=== PATIENT | female | born 1975 ===

== ENCOUNTER 2024-08-23 08:07 | Day surgery (SDC) | payer OTHER ==
[2024-08-11 12:10] VITALS: BP 121/75
[~2024-08-23 08:07] MED LIST: CANDESARTAN CILE8 MG PO; METFORMIN HCL500 M3 PO
[2024-08-23] MEDS ORDERED: CEFTRIAXONE SODIUM 2,000 MG VIAL ONE (12:39)
[2024-08-23] MEDS ORDERED: METRONIDAZOLE/SODIUM CHLORIDE 500 MG/100 ML PIGGYBACK IV ONE ×2 (12:39→14:15)
[2024-08-23] MEDS ORDERED: BUPIVACAINE HCL/MPF 0.5% 30ML VIAL ONE ×2 (13:05→13:39)
[2024-08-23] MEDS ORDERED: ENOXAPARIN SODIUM 40 MG/0.4 ML SYRINGE SUBCUTANEO ONE (14:00)
[2024-08-23] MEDS ORDERED: CEFTRIAXONE SODIUM 2,000 MG VIAL IV ONE (14:15)
[2024-08-23] MEDS ORDERED: BUPIVACAINE HCL 30 ML VIAL IJ ONE (14:15)
[2024-08-23] MEDS ORDERED: PERCOCET 5-3251 EACH PO (16:31)
[2024-08-23] MEDS ORDERED: NEURONTIN300 MG PO (16:31)
== END 2024-08-23 18:30 | disposition home or self-care (01) ==
LOC: CIR.AMB 08:07
PROVIDERS: ATTEND Surgery
DX: K80.10 Calculus of gallbladder with chronic cholecystitis without obstruction (principal)